=== PATIENT | male | born 1990 | race Caucasian/White ===

== ENCOUNTER 2020-11-05 16:52 | Emergency (ER) | payer SELFPAY ==
[~2020-11-05] VITALS: Ht 182.9 cm; Wt 88.0 kg
[~2020-11-05 16:52] MED LIST: CALCIUM CHLORIDE 1GM/10ML SYR IV ONE; EPINEPHRINE 0.1MG/ML (1:10,000) 10ML SYR ONE; SODIUM BICARBONATE 8.4% 1 MEQ/ML 50ML SYR IV ONE
[2020-11-05 17:03] VITALS: BP 0/0
== END 2020-11-05 18:11 ==
LOC: ER 16:52 → EDBD 16:52 → ER 18:11
DX: S31.133A Puncture wound of abdominal wall without foreign body, right lower quadrant without penetration into peritoneal cavity, initial encounter (principal); I46.9 Cardiac arrest, cause unspecified; W34.09XA Accidental discharge from other specified firearms, initial encounter; Y93.89 Activity, other specified; Y92.89 Other specified places as the place of occurrence of the external cause; Y99.8 Other external cause status; Z93.0 Tracheostomy status
CPT/HCPCS: 31500; 71045; 92950; 99291; J3490